=== PATIENT | female | born 1970 | race Caucasian/White ===

== ENCOUNTER 2018-06-09 07:30 | Emergency (ER) | payer BC ==
[~2018-06-09] VITALS: Ht 157.5 cm; Wt 77.3 kg
[2018-06-09] MEDS ORDERED: normal saline 1000ML IV soln IVB ONE (07:55)
[2018-06-09] MEDS ORDERED: ondansetron/PF 4mg/2ml inj IV ONE (07:55)
[2018-06-09] MEDS ORDERED: ketorolac trometh. 30mg/ml inj. IV ONE (07:55)
[2018-06-09] MEDS ORDERED: morphine 4 MG/ML inj SYRINge IV PRN (07:55)
[2018-06-09 08:13] LABS: BASOPHILS % (AUTO) 0.4 % (0-1); EOSINOPHILS # (AUTO) 0.1 X10'3 (0-0.9); EOSINOPHILS % (AUTO) 0.8 % (0-6); HEMATOCRIT 45.1 % (35.0-45.0); HEMOGLOBIN 15.1 g/dl (12.0-16.0); LYMPHOCYTES # (AUTO) 1.6 X10'3 (1.1-4.8); MEAN CORPUSCULAR HEMOGLOBIN 29.7 PG (27.0-31.0); MEAN CORPUSCULAR HGB CONC 33.6 g/dL (33.0-36.5); MEAN CORPUSCULAR VOLUME 88.5 FL (78-98); MEAN PLATELET VOLUME 8.3 FL (7.4-10.4); MONOCYTES # (AUTO) 0.5 X10'3 (0-0.9); MONOCYTES % (AUTO) 4.5 % (2-12); NEUTROPHILS # (AUTO) 7.9 X10'3 (1.8-7.7); NEUTROPHILS % (AUTO) 78.3 % (42-75); PLATELET COUNT 256 X10'3 (140-440); RED BLOOD COUNT 5.09 X10'6 (4.20-5.60); RED CELL DISTRIBUTION WIDTH 13.2 % (11.5-14.5); WHITE BLOOD COUNT 10.1 X10'3 (4.5-11.0)
[2018-06-09 08:30] LABS: CLARITY,URINE SLIGHTLY CLOUDY (Clear); COLOR,URINE YELLOW (Yellow); GLUCOSE, URINE NEGATIVE (Neg); KETONES,URINE NEGATIVE (Neg); LEUKOCYTE ESTERASE ,URINE NEGATIVE (Neg); NITRITES, URINE NEGATIVE (Neg); OCCULT BLOOD,URINE LARGE (Neg); PH,URINE 5.5 (4.8-8.0); PROTEIN,URINE TRACE mg/dl (Neg); UROBILINOGEN,URINE 0.2 E.U/dL (0.2-1.0)
[2018-06-09 08:34] LABS: UA COLLECTION TYPE VOIDED
[2018-06-09] MEDS ORDERED: HYDROcodone/acetaminophen 10/325mg tab PO ONE (08:35)
[2018-06-09 08:39] LABS: ALANINE AMINOTRANSFERASE 61 U/L (12-78); ALBUMIN 4.2 G/DL (3.4-5.0); ALBUMIN/GLOBULIN RATIO 1.1 (1.1-1.5); ALKALINE PHOSPHATASE 91 IU/L (46-116); ANION GAP 15 (8-16); ASPARTATE AMINO TRANSFERASE 28 U/L (10-37); BILIRUBIN,TOTAL 0.4 MG/DL (0.1-1.0); BLOOD UREA NITROGEN 14 MG/DL (7-18); BUN/CREATININE RATIO 13.5 (6.6-38.0); CALCIUM 9.8 MG/DL (8.5-10.1); CHLORIDE 102 MMOL/L (99-107); CREATININE 1.04 MG/DL (0.40-0.90); GLUCOSE 130 MG/DL (70-104); POTASSIUM 4.2 MMOL/L (3.5-5.1); SODIUM 139 MMOL/L (135-145); TOTAL CARBON DIOXIDE 21.7 MMOL/L (24-32); TOTAL PROTEIN 8.2 G/DL (6.4-8.2); eGFR 57 ML/MIN
[2018-06-09 08:41] LABS: INR 0.9 INR
[2018-06-09 08:44] LABS: URINE HCG NEGATIVE (NEG)
[2018-06-09 08:46] LABS: SQUAMOUS EPITHELIAL CELL,UR MANY /LPF (FEW)
[2018-06-09 08:47] LABS: MUCUS STRANDS MODERATE /LPF (Neg)
[2018-06-09 08:49] LABS: BACTERIA,URINE 2+ /HPF (Neg); WBC,URINE 0-4 /HPF (0-4)
[2018-06-09 08:50] LABS: TRANSITIONAL EPI CELLS,URINE FEW /HPF
[2018-06-09] MEDS ORDERED: HYDR-4353 PO (08:51)
[2018-06-09 09:02] VITALS: BP 134/86
== END 2018-06-09 09:04 | disposition home or self-care (01) ==
LOC: ER 07:31
DX: N83.201 Unspecified ovarian cyst, right side (principal); R11.2 Nausea with vomiting, unspecified; Z88.0 Allergy status to penicillin; Z88.8 Allergy status to other drugs, medicaments and biological substances; Z79.899 Other long term (current) drug therapy; Z98.890 Other specified postprocedural states
CPT/HCPCS: 36415; 76830; 76856; 80053; 81001; 81025; 85025; 85610; 96361; 96374; 96375; 99284; J1885; J2270; J2405; J7030